=== PATIENT | male | born 1985 | race Two or more races ===

== ENCOUNTER 2017-09-02 00:32 | Emergency (ER) | payer OTHER ==
[2017-09-02 00:47] VITALS: BP 113/72
[2017-09-02] MEDS ORDERED: ONDANSETRON HCL INJ/PF 4 MG/2 ML SDV IV ONE (00:56)
[2017-09-02] MEDS ORDERED: METOCLOPRAMIDE HCL ORAL SOLN 10 MG/10 ML UDCUP PO ONE (00:57)
[2017-09-02] MEDS ORDERED: MAG HYDROX/AL HYDROX/SIMETH SUSP 30 ML UDCUP PO ONE (00:57)
[2017-09-02] MEDS ORDERED: LIDOCAINE 2% VISCOUS SOLN 20 ML UDCUP PO ONE (00:57)
--- NOTE | 2017-09-02 01:01 | ER Document Report ---
ED General - General Chief Complaint: Fall Injury Stated Complaint: RIB PAIN Time Seen by Provider: 09/02/17 00:46 Notes: Patient is a 32-year-old male with a past medical history, no prior surgical history, who fell off the top bunk in shelter. States that he caught himself and struck the right side of his ribs and upper abdomen on the side of the bed. He states that since that time he has had 3 episodes in which she has vomited in small amounts of blood have been contained in the vomitus. He denies any danette hematemesis. He has not vomited now in several hours. He also notes a dull, constant throbbing pain to the right lower ribs. Moving or breathing worsens the pain. He has not tried any to improve the pain. He denies any history of similar symptoms in the past. Denies any syncope, head trauma, neck pain, or trauma to any other location. - Related Data Allergies/Adverse Reactions: Sulfa (Sulfonamide Antibiotics) Allergy (Verified 09/02/17 00:46) Past Medical History - General Information source: Patient - Social History Smoking Status: Never Smoker Frequency of alcohol use: None Drug Abuse: None Lives with: Other - Alf Family History: Reviewed & Not Pertinent Patient has suicidal ideation: No Patient has homicidal ideation: No Renal/ Medical History: Denies: Hx Peritoneal Dialysis Review of Systems - Review of Systems Notes: Constitutional: Negative for fever. Eyes: Negative for visual changes. ENT: Negative for facial injury Cardiovascular: Negative for chest injury. Respiratory: Negative for shortness of breath. Gastrointestinal: Positive for abdominal injury. Genitourinary: Negative for genital injury Musculoskeletal: Positive for right lower rib injury Skin: Negative for laceration/abrasions. Neurological: Negative for head injury. Physical Exam - Vital signs Vitals: Temp Pulse Resp BP Pulse Ox 98.9 F 82 16 113/72 99 09/02/17 00:46 09/02/17 00:46 09/02/17 00:46 09/02/17 00:46 09/02/17 00:46 Interpretation: Normal Notes: PHYSICAL EXAMINATION: GENERAL: Well-appearing, no acute distress. HEAD: Atraumatic, normocephalic. EYES: Pupils equal round and reactive to light, extraocular movements intact, sclera anicteric, conjunctiva are normal. ENT: nares patent, no oral pharyngeal trauma. No hemotympanum, no Sanchez's sign , no raccoon eyes. NECK: No midline cervical spine tenderness. Patient able to move their head to 45 bilaterally without any discomfort. LUNGS: Breath sounds clear to auscultation bilaterally and equal. No wheezes rales or rhonchi. HEART: Regular rate and rhythm without murmurs. CHEST WALL: No ecchymosis over the chest wall. Pain on palpation of the right lower ribs ABDOMEN: Soft, nontender, normoactive bowel sounds. No guarding, no rebound. No abdominal bruising EXTREMITIES: Normal range of motion, no pitting or edema. No long bone deformities. BACK: No midline spinal tenderness, step-offs, or deformities. NEUROLOGICAL: Moves all extremities spontaneously and on command PSYCH: Normal mood, normal affect. SKIN: Warm, Dry, normal turgor, no rashes or lesions noted. Course - Re-evaluation Re-evalutation: 09/02/17 01:00 Presentation of vomiting and small amount of blood in the vomitus after patient fell and struck his right lower ribs and upper abdomen. Patient is extremely well in appearance, vitals normal limits, has not had any active vomiting or hematemesis for over 2 hours at the time of my assessment. He is asking for something to eat. His physical examination is remarkable only for mild tenderness along palpation of the right lower ribs. I do not clinically suspect do not suspect a clinically significant injury. He did not hit his head or neck. No bruising or trauma over the abdomen to suggest a duodenal hematoma or significant intestinal injury and the mechanism would be atypical for this degree of injury. Moreover patient has not had any ongoing vomiting down over 2 hours. Will provide a p.o. challenge, IV Zofran, chest x-ray and reassess. Bedside FAST exam is negative. 09/02/17 02:44 Patient has tolerated p.o. intake without any difficulty. No further vomiting. Pain improved. Chest x-ray is clear. Abdominal exam remains benign. Vitals remain within normal limits. At this time will discharge with return precautions and follow-up recommendations. Verbal discharge instructions given a the bedside and opportunity for questions given. Medication warnings reviewed. Patient is in agreement with this plan and has verbalized understanding of return precautions and the need for primary care follow-up in the next 24-72 hours. - Vital Signs Vital signs: Temp Pulse Resp BP Pulse Ox 98.9 F 82 16 113/72 99 09/02/17 00:46 09/02/17 00:46 09/02/17 00:46 09/02/17 00:46 09/02/17 00:46 - Laboratory Result Diagrams: 09/02/17 01:20 Laboratory results interpreted by me: 09/02/17 01:20 MCH 26.8 L RDW 14.2 H Monocytes % 15.8 H - Diagnostic Test Radiology reviewed: Image reviewed, Reports reviewed Radiology results interpreted by me: 09/02/17 02:44 Chest x-ray: No acute infiltrate or pneumothorax Discharge - Discharge Clinical Impression: Rib injury Fall Qualifiers: Encounter type: initial encounter Qualified Code(s): W19.XXXA - Unspecified fall, initial encounter Vomiting Qualifiers: Vomiting type: unspecified Vomiting Intractability: non-intractable Nausea presence: with nausea Qualified Code(s): R11.2 - Nausea with vomiting, unspecified Condition: Good Disposition: HOME, SELF-CARE Additional Instructions: Your x-ray is normal. Please return if you have persistent vomiting, worsening pain, pass out, or have any other symptoms that are worrisome to you.
[2017-09-02 01:32] LABS: ABSOLUTE NEUT (AUTO) 4.1 10^3/uL (1.7-8.2); BASOPHILS % (AUTO) 0.2 % (0-2); EOSINOPHILS % (AUTO) 0.7 % (0-6); HEMATOCRIT 40.9 % (37.9-51.0); HEMOGLOBIN 13.7 g/dL (13.5-17.0); LYMPHOCYTES % (AUTO) 16.6 % (13-45); MEAN CORPUSCULAR HEMOGLOBIN 26.8 pg (27.0-33.4); MEAN CORPUSCULAR HGB CONC 33.4 g/dL (32.0-36.0); MEAN CORPUSCULAR VOLUME 80 fl (80-97); MONOCYTES % (AUTO) 15.8 % (3-13); PLATELET COUNT 194 10^3/uL (150-450); RED CELL DISTRIBUTION WIDTH 14.2 % (11.5-14.0); SEGMENTED NEUTROPHILS % (AUTO) 66.7 % (42-78); TOTAL CELLS COUNTED % (AUTO) 100 %; WHITE BLOOD COUNT 6.2 10^3/uL (4.0-10.5)
--- NOTE | 2017-09-02 01:59 | RADIOLOGY REPORT (SQ) ---
EXAM DESCRIPTION: CHEST PA/LAT CLINICAL HISTORY: 32 years, Male, rib injury on right COMPARISON: None. NUMBER OF VIEWS: 2 FINDINGS: Normal lung volume, clear parenchyma, normal cardiac silhouette, and intact bony thorax. IMPRESSION: No acute cardiopulmonary findings.
== END 2017-09-02 02:56 | disposition home or self-care (01) ==
LOC: ER 00:32
DX: S29.9XXA Unspecified injury of thorax, initial encounter (principal); S39.91XA Unspecified injury of abdomen, initial encounter; W06.XXXA Fall from bed, initial encounter; Y92.149 Unspecified place in prison as the place of occurrence of the external cause; K92.0 Hematemesis; Z88.2 Allergy status to sulfonamides
CPT/HCPCS: 99284; 96374; 36415; 85025; 71046; J3490; J2405

== ENCOUNTER 2019-10-24 23:48 | Emergency (ER) | payer SELFPAY ==
[2019-10-25] MEDS ORDERED: LORAZEPAM INJ 2 MG/1 ML VIAL IV ONE ×3 (00:10→09:13)
[2019-10-25 00:58] LABS: ABSOLUTE BASOPHILS # (AUTO) 0.1 10^3/uL (0.0-0.2); ABSOLUTE LYMPHOCYTES (AUTO) 0.7 10^3/uL (0.5-4.7); ABSOLUTE MONOCYTES (AUTO) 1.2 10^3/uL (0.1-1.4); ABSOLUTE NEUT (AUTO) 10.8 10^3/uL (1.7-8.2); BASOPHILS % (AUTO) 0.4 % (0-2); HEMATOCRIT 40.8 % (37.9-51.0); HEMOGLOBIN 14.2 g/dL (13.5-17.0); LYMPHOCYTES % (AUTO) 5.2 % (13-45); MEAN CORPUSCULAR HEMOGLOBIN 27.5 pg (27.0-33.4); MEAN CORPUSCULAR HGB CONC 34.7 g/dL (32.0-36.0); MEAN CORPUSCULAR VOLUME 79 fl (80-97); MONOCYTES % (AUTO) 9.5 % (3-13); PLATELET COUNT 251 10^3/uL (150-450); RED BLOOD COUNT 5.15 10^6/uL (4.35-5.55); RED CELL DISTRIBUTION WIDTH 13.4 % (11.5-14.0); SEGMENTED NEUTROPHILS % (AUTO) 84.9 % (42-78); TOTAL CELLS COUNTED % (AUTO) 100 %; WHITE BLOOD COUNT 12.7 10^3/uL (4.0-10.5)
[2019-10-25 01:00] LABS: ALKALINE PHOSPHATASE 71 U/L (38-126); ANION GAP 13 (5-19); ASPARTATE AMINO TRANSFERASE 94 U/L (17-59); BILIRUBIN,DIRECT 0.5 mg/dL (0.0-0.4); BILIRUBIN,TOTAL 2.1 mg/dL (0.2-1.3); BLOOD UREA NITROGEN 39 mg/dL (7-20); CALCIUM 9.7 mg/dL (8.4-10.2); CARBON DIOXIDE 25 mmol/L (22-30); CHLORIDE 97 mmol/L (98-107); GLUCOSE 95 mg/dL (75-110); POTASSIUM 4.2 mmol/L (3.6-5.0); TOTAL PROTEIN 8.1 g/dL (6.3-8.2)
--- NOTE | 2019-10-25 03:01 | ER Document Report ---
ED Substance Abuse / Acc. OD <ANAID SAMANIEGO - Last Filed: 10/26/19 04:48> <JOSH DUMONT - Last Filed: 10/26/19 14:53> <CRIS EDWARDS - Last Filed: 10/26/19 17:38> - General Chief Complaint: Possible Overdose Stated Complaint: PARANOIA Time Seen by Provider: 10/25/19 00:07 Primary Care Provider: [facility] [Provider Group] - Follow up as needed (Walk in Sunday through Sunday 8:00AM-4:3oPM to establish services for medication management, group therapy and individual therapy.) [facility] [Provider Group] - Follow up as needed [facility] [Outside] - Follow up as needed Notes: 34-year-old man who presents to the emergency department with history of apparently injected something tonight and became very paranoid. The police were called to the hotel room and found the patient in the bathtub with a syringe and an unknown substance in the syringe. PD found Suboxone at the scene. The patient was at first unresponsive but then became easily responsive and escalating paranoia, EMS was called to the hotel room patient was transported to the emergency department. He was very fidgety and speaking and very dissociative way. At times he refers to Suboxone as something that he may have used. (ANAID SAMANIEGO) - Related Data Allergies/Adverse Reactions: Sulfa (Sulfonamide Antibiotics) Allergy (Verified 10/25/19 01:54) Past Medical History - Social History Smoking Status: Current Some Day Smoker Family History: Reviewed & Not Pertinent Patient has homicidal ideation: No Renal/ Medical History: Denies: Hx Peritoneal Dialysis <ANAID SAMANIEGO - Last Filed: 10/26/19 04:48> Review of Systems <ANAID SAMANIEGO - Last Filed: 10/26/19 04:48> - Review of Systems Notes: Constitutional: 1953 very shaky and HENT: Negative for sore throat. Eyes: Negative for visual changes. Cardiovascular: Negative for chest pain. Respiratory: Negative for shortness of breath. Gastrointestinal: Negative for abdominal pain, vomiting or diarrhea. Genitourinary: Negative for dysuria. Musculoskeletal: Negative for back pain. Skin: Negative for rash. Neurological: + Speech, nonsensical 10 point ROS negative except as marked above and in HPI. (ANAID SAMANIEGO) Physical Exam <ANAID SAMANIEGO - Last Filed: 10/26/19 04:48> - Vital signs Vitals: Temp 98.2 F 10/25/19 00:04 - Notes Notes: PHYSICAL EXAMINATION: Physical Exam: General: Well-nourished well-developed shaky, rubbing his neck and head no acute distress HEENT: NC/AT, pupils equal round and reactive to light, MM moist,nares clear, o ropharynx clear, airway patent Neck: supple, no adenopathy, no masses. Good range of motion Lungs: clear, no wheezing, no rales no rhonchi CVS: Tachycardic rate and rhythm no murmur gallop or rub Abdomen: Soft, active, nontender, no masses, no hepatosplenomegaly Ext: No edema, clubbing or cyanosis. Neuro: Alert and responsive, speech is pressured, dissociative and at times makes no sense. Skin: Intact no open lesions, no rash PSYCH: Normal mood, normal affect. (ANAID SAMANIEGO) Course - Laboratory Result Diagrams: 10/25/19 00:30 10/25/19 00:30 - EKG Interpretation by Me Rate: Tachycardia - Sinus tachycardia with a rate of 100, no acute ST or T wave abnormalities noted interpretation sinus tachycardia otherwise normal EKG. <ANAID SAMANIEGO - Last Filed: 10/26/19 04:48> - Laboratory Result Diagrams: 10/25/19 00:30 10/25/19 00:30 <JOSH DUMONT - Last Filed: 10/26/19 14:53> - Laboratory Result Diagrams: 10/25/19 00:30 10/25/19 00:30 <CRIS EDWARDS - Last Filed: 10/26/19 17:38> - Re-evaluation Re-evalutation: 10/25/19 03:10 Paranoid hyperactive and altered, likely substance use in a 34-year-old male presenting to the emergency department from a local hotel room. Medical evaluation and stabilization should be performed. A close evaluation of the patient's psychiatric condition may be done as he has a chance to clear his systems. (ANAID SAMANIEGO) 10/26/19 17:09 The patient was signed out to me at shift change since his psych dispo was still pending. Patient had used Meth and was agitated initially and not safe to be discharged. The patient was therefore observed in the ER. Psych saw the patient and cleared him for outpatient follow up. The He is no longer agitated here in the ER and he denies SI and HI. GEN: Alert and Oriented, no distress HEENT: EOMI, MMM NEURO: No focal deficits, normal mentation, ambulates normally PSYCH: Denies SI or HI. Normal affect and Mood. (JERRYCRIS Rodarte) - Vital Signs Vital signs: Temp Pulse Resp BP Pulse Ox 98.1 F 118 H 18 116/82 98 10/26/19 11:58 10/26/19 11:58 10/26/19 11:58 10/26/19 11:58 10/26/19 11:58 - Laboratory Laboratory results interpreted by me: 10/25/19 10/25/19 10/25/19 00:30 00:30 04:15 WBC 12.7 H MCV 79 L Lymph % (Auto) 5.2 L Absolute Neuts (auto) 10.8 H Seg Neutrophils % 84.9 H Sodium 134.6 L Chloride 97 L BUN 39 H Total Bilirubin 2.1 H Direct Bilirubin 0.5 H AST 94 H ALT 63 H Urine Ketones 80 H Discharge <ANAID SAMANIEGO - Last Filed: 10/26/19 04:48> <JOSH DUMONT - Last Filed: 10/26/19 14:53> <EDWARDSCRIS - Last Filed: 10/26/19 17:38> - Discharge Clinical Impression: Substance abuse, Methamphetamine abuse, Paranoid behavior Condition: Stable Disposition: HOME, SELF-CARE Additional Instructions: You have been evaluated by both medical and behavioral health teams for altered mental status and substance induced psychosis (paranoia, karlos) and have been deemed appropriate for discharge. While in the emergency department you received the following services: Medical screening and assessment, nursing services, dietary services, pharmacological services, one-on-one counseling and/or psychotherapy, environmental services, and continuous observation by a patient chief safety officer. Medication recommendations have been have been provided and are as follows: Effexor 37.5 MG twice a day for depression/focus/curb cravings and Buspar 5MG twice a day for anxiety/calming effect/depression/sleep. Please take your medications as prescribe and do not stop these medications without discussion with your prescribing physician. You should abstain from use of other substances as they alter cognition, cause and/or exacerbate psychosis (paranoia, karlos, and others) and interfere with the effectiveness of medications. Altered Mental Status (substance induced psychosis-paranoia, karlos) An altered mental status is a change in the normal functioning of the brain. This alteration of function can range from minor decreased brain function with some forgetfulness and confusion to complete loss of consciousness and coma. There are many possible causes of an altered mental status and include brain injuries such as trauma or strokes, problems with oxygen supply to the brain, fever and infections of the brain and/or elsewhere in the body, metabolic abnormalities such as low or high blood sugar, overdoses or excessive medication ingestion, and mental and psychiatric illnesses. Sometimes the altered mental status resolves and a definite cause is not determined. If a cause for your altered mental status was found, it has likely been corrected. Your evaluation has not shown any condition that requires that you be admitted to the hospital. It is believed that you are safe to leave and return to your home. If you have a return of your symptoms, you should return for re-evaluation. NARCOTIC / OPIOD ABUSE: Narcotics and opiods are pain-relieving drugs that are often abused. They are addicting. Narcotics cause euphoria, but it often takes increasing amounts to "feel good" and avoid withdrawal symptoms. Overdose of narcotics causes small pupils, coma, and decreased breathing. It's a common cause of . Purity of street narcotics is unpredictable. Injection of narcotics is risky for abscesses, endocarditis (heart infection), pneumonia, and AIDS. Withdrawal from narcotics causes goose bumps, watery mouth, sweating, nasal congestion, muscle aches, abdominal cramps, vomiting, and diarrhea. There's often restlessness and confusion. Treatment programs are available, but you must make the decision to quit. Medication (such as clonidine) can be prescribed to control the symptoms of withdrawal. AMPHETAMINE / METHAMPHETAMINE ABUSE: Amphetamines are addicting stimulants. Amphetamines overstimulate the nervous system and give a false feeling of power and mastery. These drugs may be obtained as prescription pills for weight loss, narcolepsy, or attention-deficit disorder. More often they're bought as an illegal street drug, methamphetamine (crank, crystal, speed). Using amphetamines repeatedly can lead to serious medical problems including malnutrition, severe depression, and paranoia. It can take increasing amounts to feel good. Eventually, there will be a "burn out." When you go off amphetamines there is a period of depression that may last for weeks or even months. High doses of amphetamines can cause seizures, confusion, hallucinations, delusions, high blood pressure, muscle damage, heart damage, or sudden . Many times these deadly complications occur even with "normal" doses. Injection of amphetamines is risky for developing abscesses, endocarditis (heart infection), pneumonia, and AIDS. Withdrawal from amphetamines often causes anxiety, depression, and drug cravings. Some users become paranoid and psychotic. There may be cramps, nausea, and vomiting. Many treatment programs are available, but you must make the decision to quit. Medication can be prescribed to control the symptoms of amphetamine toxicity (beta blockers or benzodiazepines). Withdrawal symptoms may require tranquilizers. FOLLOW-UP CARE: You are encouraged to establish services for ongoing substance abuse treatment and mental health with [facility] where you can do walk in Sunday through Sunday 8:00AM-4:30 PM. You have been provided an outpatient mental health resource sheet which highlighted both mobile crisis numbers and [facility]. You mentioned getting back into meeting which you had at [facility] and are encouraged to do so. If you experience worsening or a significant change in your symptoms notify your physician immediately, return to the Emergency Department at any time for re-evaluation or utilize mobile crisis. Prescriptions: Buspirone HCl 1 tab PO BID #60 tab Venlafaxine HCl ER [Effexor Xr 37.5 mg Cap.sr] 37.5 mg PO BID #60 cap.sr.24h Referrals: [facility] [Outside] - Follow up as needed [facility] [Provider Group] - Follow up as needed [facility] [Provider Group] - Follow up as needed (Walk in Sunday through Sunday 8:00AM-4:3oPM to establish services for medication management, group therapy and individual therapy.)
[2019-10-25 04:53] LABS: APPEARANCE,URINE CLEAR; BILIRUBIN,URINE NEGATIVE (NEGATIVE); COLOR,URINE YELLOW; GLUCOSE, URINE NEGATIVE (NEGATIVE); KETONES,URINE 80 mg/dL (NEGATIVE); PROTEIN,URINE NEGATIVE (NEGATIVE); URINE BARBITURATES SCREEN NEGATIVE; URINE BENZODIAZEPINES SCREEN NEGATIVE; URINE COCAINE SCREEN NEGATIVE; URINE MARIJUANA (THC) SCREEN NEGATIVE; URINE METHADONE SCREEN NEGATIVE; URINE PHENCYCLIDINE SCREEN NEGATIVE; URINE SPECIFIC GRAVITY 1.025; UROBILINOGEN,URINE NEGATIVE mg/dL (<2.0)
[2019-10-25] MEDS ORDERED: PHENYLEPHRINE HCL 0.25% NASAL SPRAY 15 ML NASL ONE (05:05)
[2019-10-25] MEDS ORDERED: PHENYLEPHRINE HCL 0.25% NASAL SPRAY 15 ML ONE (05:21)
--- NOTE | 2019-10-25 08:42 | EKG REPORT ---
SEVERITY:- OTHERWISE NORMAL ECG - SINUS TACHYCARDIA : Confirmed by: Saul Dior MD 25-Oct-2019 08:41:30
[2019-10-25] MEDS ORDERED: CHLORPROMAZINE HCL INJ 25 MG/1 ML AMPULE IM ONE (14:46)
[2019-10-25] MEDS ORDERED: CHLORPROMAZINE HCL INJ 25 MG/1 ML AMPULE IM PRN (14:47)
[2019-10-25] MEDS: BENZTROPINE MESYLATE INJ 2 MG/2 ML AMPULE IM SCH (15:28)
[2019-10-25] MEDS ORDERED: NORMAL SALINE 1000 ML 1,000 ML IV ONE (17:41)
--- NOTE | 2019-10-25 17:45 | ER Document Report ---
Doctor's Note Notes: 10/25/19 17:42 Patient is a 34-year-old male who came in last night agitated and apparently recently used methamphetamines. Patient was agitated and unable to make rational decisions so was medicated and placed on a 24-hour hold. He is otherwise medically stable. Has been given multiple doses of Ativan, as well as Thorazine, to keep him calm. Mental health will reassess in the morning. No active issues right now.
--- NOTE | 2019-10-26 00:25 | PSYCHOLOGICAL NOTE ---
Psych Note - Psych Note Date seen by psych provider: 10/25/19 Time seen by psych provider: 13:96 - [id number] Psych Note: Presenting Problem: Patient is a 34 year old male who presented to the [facility] ED via EMS late last evening after LE was called and they found patient in the bath tub of a hotel with unknown substance in a syringe. Suboxone was found on scene. Patient was standing at the counter by the sink in his room eating. Observed patient with psychomotor agitation (arms and legs having lots of movement) unable to stay still and standing. Patient reported "I'm thinking, I want to tell you, but not be so drawn out" when asked why he was in ED. He then said "1, 2 Bam, Bam." Patient stated "I woke up, I was on a bed, my hands were underneath me (he made gestures to indicate they were behind his back underneath him as if handcuffed), I freaked out and started slamming my head into the faucet." He became tearful and his talking was more difficult to understand when he mentioned this. He said it was scary. He admitted he was "on drugs so long, had a couple years of sobriety, there was a certain point, I saw a doctor, then I fell off but not completely." When informed it sounded like family may have called and were worried he became tearful again and mentioned his girlfriend Shahnaz and mother Kimi. He stated they could be made aware he was safe. Patient was alert and oriented to self, place and what he recalled of situation. Mood was manic with labile affect as evidenced by euphoric state but getting depressed and tearful quickly. He never made statements or gestures regarding SI/HI. Patient did not appear to be responding to internal stimuli as evidenced by trying to make eye contact (his eye lids were almost completely closed there were just slits) and answering questions when addressed. Conversational speech was pressured and slurred. He had psychomotor agitation and unsteady gait. Thought process were tangential and not linear. Intellectual abilities are estimated to be average. Insight, judgment and impulse control were poor as evidenced by AMS as if under the influence of substance(s), he reported a history of such with relapse and his UDS is positive for Methamphetamine. Attending nurse informed this clinician patient said he wanted to leave AMA. She was made aware he cannot leave in the condition he was presenting with. Collateral (obtained by [facility] [employer] and copied directly from her note): The following information was obtain from patients , Shahnaz Ramsay ([phone]), who reports patient is a recovering addict. Patient has not been home for a couple of days after leaving for an unknown location after he was not allowed in the home because he was acting funny. believes patient was under the influence of substance(s). Patient has not been responding to friends or family for approximately 36 hours. No medical concerns. Patient is prescribed an unknown dosage of Prozac, Wellbutrin, and Trazodone by [facility] in [place] for unknown mental health diagnoses. Patient was engaged in detox/substance abuse treatment in [place] for 21 days, and then went to an [facility] but left on his own accord after 2 months. Patient has not been actively engaged in substance abuse since he left the [facility] since mid-July. Interventions: Used open ended questioning to obtain information regarding current crisis situation and past, as well as to get patient to elaborate. Diagnosis: Substance (Methamphetamine) Induced Psychosis Patient reported History of Substance Abuse with 2 year period of Sobriety Medication recommendations: Add Thorazine 50MG IM Once Now for psychosis/agitation/anxiety Add Thorazine 50MG IM every 6 hours as needed for psychosis/agitation/anxiety Add Cogentin 1MG daily to curb tremor side effects often associated with antipsychotic medications Impression/Plan: Recommendation to put patient on a 24 Hour Petition for Evaluation. Patient presented with karlos, mood lability from euphoric to depressed, had pressured speech, his eyes were barely open, he had unsteady gait and he had psychomotor agitation all signs of being under the influence of methamphetamine. He is under the influence which inhibits his insight, judgment and impulse control thus putting himself and others in danger. Will reassess tomorrow once he has sobered up to get better mental status exam and make further treatment determination. Consulted with Dr. Johnson regarding the management and care of patient. ED Physician in agreement with recommendations.
[2019-10-26] MEDS: BENZTROPINE MESYLATE INJ 2 MG/2 ML AMPULE IM SCH (11:00)
[2019-10-26] MEDS ORDERED: VENLAFAXINE HCL 37.5 MG CAP.SR.24H PO SCH (18:00)
[2019-10-26] MEDS ORDERED: BUSPIRONE HCL 10 MG TABLET PO SCH (18:00)
[2019-10-26 18:34] VITALS: BP 113/80
--- NOTE | 2019-10-27 02:13 | PSYCHOLOGICAL NOTE ---
Psych Note - Psych Note Date seen by psych provider: 10/26/19 Time seen by psych provider: 13:10 - [id number] Psych Note: Presenting Problem: Patient is a 34 year old male who presented to the [facility] ED via EMS late the evening before last after [facility] was called and they found patient in the bath tub of a hotel with unknown substance in a syringe. Suboxone was found on scene. Patient presented with altered mental status consistent with substance intoxication: karlos, psychomotor agitation, unsteady gait, pressured and slurred speech and mood lability (euphoric, depressed). He was subsequently put on a 24 Hour Petition for Evaluation and given one time dose of Thorazine 50MG IM. Held overnight to allow to sober up so more accurate evaluation could take place. Today patient stated he was "tired and groggy." He did not recall talking with this clinician yesterday. 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 he admitted he and his girlfriend "got into it the other night." He stated he would try to stay with her but wants to get back into the [facility]. He was aware of [facility] for [place] services and encouraged to walk in first thing tomorrow morning (10/27/2019) to establish services. he stated he was interested in services and medications. Patient was alert and oriented to self, person, place, time and situation. Mood was euthymic with congruent affect. He never made statements or gestures regarding SI/HI and denied them. Patient did not appear to be responding to internal stimuli as evidenced by fair eye contact and carrying on in dialogue conversation. Conversational speech was within normal limits for rate, tone and prosody. he was laying in bed without constant movement. Thought process were linear and organized. Intellectual abilities are estimated to be average. Insight, judgment and impulse control were fair as evidenced by being sober, engaged and processing relapse. Interventions: Used open ended questioning to obtain information regarding current crisis situation and past, as well as to get patient to elaborate. Provided psychoeducation on the importance of medication management, therapy, group and NA meetings for ongoing support. 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 Patient's mental status was improved, no longer manic (NONE of the following: pressured speech, psychomotor agitation, tangential thinking), he had time to sober up and thoughts were organized/linear. He denied SI/HI and these were nev er presenting concerns. He discussed his relapse and was open about what he used. He had contact and natural support systems of girlfriend and father. Patient provided with the outpatient MH resource sheet which highlighted both MCM numbers and documented walk in times for both [facility] and [facility] local agency. He was encouraged to walk in to one or the other with ability to do so at [facility] first thing tomorrow (10/27/2019) morning. Consulted with Dr. Johnson regarding the management and care of patient. ED Physician in agreement with recommendations.
== END 2019-10-26 18:41 | disposition home or self-care (01) ==
LOC: ER 23:48
DX: F22 Delusional disorders (principal); F15.10 Other stimulant abuse, uncomplicated; F17.200 Nicotine dependence, unspecified, uncomplicated; Z88.2 Allergy status to sulfonamides
CPT/HCPCS: 96376; 99285; 96372; 96374; 36415; 85025; 80053; 81001; 80307 ×2; 93005; 93010; G0480; J0515 ×2; J3230; J2060; J3490